=== PATIENT | female | born 1985 | race Caucasian/White ===

== ENCOUNTER 2016-03-31 15:19 | Emergency (ER) | payer MEDICAID ==
[2016-03-31 15:34] VITALS: TEMP 98.5; BMI 22.4
[2016-03-31 15:55] LABS: AUTOMATED BASOPHIL 1.5 % (0-2); AUTOMATED LYMPH 43.7 % (17-44); AUTOMATED MONOCYTE 4.8 % (3-10); MPV 8.9 fL (7.4-10.4)
[2016-03-31 15:56] LABS: BLOOD UREA NITROGEN 8 MG/DL (7-17); CALCIUM 8.8 MG/DL (8.4-10.2); CALCULATED OSMOLALITY 266 MOs/Kg (270-290); CHLORIDE 103 mEq/L (98-107); GLUCOSE 89 MG/DL (70-99); SODIUM LEVEL 140 mEq/L (137-146); TOTAL PROTEIN 7.6 G/DL (6.3-8.2)
[2016-03-31] MEDS ORDERED: MORPHINE 4 MG/ML INJECTION IV ONE ×2 (17:04→18:43)
[2016-03-31] MEDS ORDERED: ONDANSETRON HCL 4 MG/2 ML VIAL IV ONE (17:04)
[2016-03-31] MEDS ORDERED: NS 1,000 ML IV ONE (17:04)
[2016-03-31] MEDS ORDERED: PANTOPRAZOLE 40 MG VIAL IV ONE (17:05)
--- NOTE | 2016-03-31 17:26 | EDPRACDOC ---
- General Information Chief Complaint: Abdominal Pain Stated Complaint: UPPER ABD PAIN WITH PAIN IN BACK VOMITIN Time Seen by Provider: 03/31/16 16:59 Information Source: Patient Mode Of Arrival: Car Home Medications: Home Medications Famotidine [Pepcid] 20 mg PO DAILY #30 tablet 03/31/16 Ferrous Sulfate 324 mg PO DAILY #30 tab 03/31/16 Hydrocodone/Acetaminophen [Lortab 5-325 mg Tablet] 1 each PO Q4H PRN #15 tablet 03/31/16 Allergies/Adverse Reactions: Allergies Allergy/AdvReac Type Severity Reaction Status Date / Time No Known Allergies Allergy Verified 01/28/16 12:13 - History of Present Illness Onset: last night HPI: PT HAS HAD UPPER ABD PAIN SINCE LAST NIGHT. PT SAID IT STARTED AFTER EATING SPAGHETTI. THE PT SAID IT HURTS EVERY TIME SHE EATS. THE PT SAID THAT SHE HAS HAD THIS IN THE PAST, BUT NO EVAL. PT SAID THAT SHE HAS A HX OF ANEMIA AND SEES DR. RUCKER FOR THIS. SHE WAS SUPPOSED TO F/U WITH BEEF SPECIALIST, BUT HAS NOT DONE SO YET DESPITE REQUESTS TO DO SO BY DR. RUCKER. PT SAID HER PCP HAS NOT GIVEN HER A REFERRAL. PT SAID HER PERIODS HAVE NOT BEEN BAD. GB US 2015 NL. Pain Location: Reports: Epigastric Pain Context: Reports: Spontaneous, After Eating Pain Severity: Mild Pain Quality: Reports: Burning Pain Radiation: Reports: No Radiation Last Menstrual Period: 3 weeks : No Blood Type: Unknown Adult Abdominal History: Reports: Abdominal Surgery Female Abdominal History: Reports: Abdominal Surgery Modifying Factors: improves with: Food Oral Intake: Decreased Urinary Output: Normal ED Past Medical History - Patient Medical History Neurological History: Reports: Seizures Psychological History: Reports: Depression Surgical History: Reports: Appendectomy, Tonsillectomy/Adnoidectomy, Other (CSX3 ). Denies: Hysterectomy - Social Medical History Smoking Status: Never smoker ETOH: None Substance Abuse: None Lives In: Home EDM Review of Systems - Review of Systems ROS Negative Except as Marked: Yes All systems reviewed and were negative except as marked Gastrointestinal: Pain - Physical Exam Constitutional: Alert (Awake), No apparent distress Oriented to: Time, Person, Place Last recorded Vital Signs: Last Vital Signs Temp 98.5 F 03/31/16 15:31 Pulse 62 03/31/16 19:44 Resp 18 03/31/16 19:44 BP 102/51 L 03/31/16 19:44 Pulse Ox 98 03/31/16 19:44 Oxygen Pulse Oxygen Saturation 98 O2 Device Room Air Oxygen Flow Rate Fraction of Inspired Oxygen ( FIO2) - HEENT Head: Normal ( normocephalic) Eye Exam: Normal (PERRL, EOMI, Sclera white) Oropharynx: Normal (Pharynx:Moist without exudate,Gums-no swelling) ENT EAC: Normal TMJ: Normal Nose: No Symptoms Reported (septum midline) Neck: Normal (FROM, trachea at midline) - Respiratory/Cardiovascular Respiratory: Normal - CTA (BBS clear to auscultation without adventitious sounds ) Cardiovascular: Normal (RRR without murmur, gallop or rub) - GI Auscultation: Normal (NABS) Palpation: Normal (Soft,No rebound or guarding, non distended) Tenderness: Mild, Epigastric Mcgovern's Sign: Negative - Musculoskeletal Back: Normal (Non-Tender) Extremities: Normal (Normal tone, Pulses 2+ No cyanosis or edema, FROM) - Integumentary Skin: Normal, Warm, Dry Lymphatics: Normal (no adenopathy) - Neurologic Memory Impaired: Normal Motor Function: Normal (Normal tone, Pulses 2+ No cyanosis or edema, FROM) Cranial Nerve: Normal (CN II-X11 intact sensation, strength 5/5) Cerebellar: Normal Mood Description: Normal Thought: Coherent Perception: Normal - Results 03/31/16 15:40 03/31/16 15:40 WBC 6.5 xk/uL (3.8-10.8) 03/31/16 15:40 RBC 4.68 xM/uL (4.20-5.40) 03/31/16 15:40 Hgb 8.4 g/dL (12.0-16.0) L 03/31/16 15:40 Hct 29.2 % (36-47) L 03/31/16 15:40 MCV 62 fL (81-99) L 03/31/16 15:40 MCH 18.0 pg (27-32) L 03/31/16 15:40 MCHC 28.8 g/dl (33-36) L 03/31/16 15:40 RDW 19.3 % (11.5-14.5) H 03/31/16 15:40 Plt Count 323 xk/uL (130-400) 03/31/16 15:40 MPV 8.9 fL (7.4-10.4) 03/31/16 15:40 Sodium 140 mEq/L (137-146) 03/31/16 15:40 Potassium 4.1 mEq/L (3.5-5.1) 03/31/16 15:40 Chloride 103 mEq/L (98-107) 03/31/16 15:40 Carbon Dioxide 27 mMOL/L (22-33) 03/31/16 15:40 Anion Gap 14 mEq/L (8-16) 03/31/16 15:40 BUN 8 MG/DL (7-17) 03/31/16 15:40 Creatinine 0.70 MG/DL (0.52-1.04) 03/31/16 15:40 Estimated GFR (MDRD) > 60 mL/min (>=60) 03/31/16 15:40 Glucose 89 MG/DL (70-99) 03/31/16 15:40 Calculated Osmolality 266 MOs/Kg (270-290) L 03/31/16 15:40 Calcium 8.8 MG/DL (8.4-10.2) 03/31/16 15:40 Total Bilirubin 0.4 MG/DL (0.2-1.3) 03/31/16 15:40 AST 24 IU/L (14-36) 03/31/16 15:40 ALT 29 IU/L (9-52) 03/31/16 15:40 Alkaline Phosphatase 45 IU/L (38-126) 03/31/16 15:40 Total Protein 7.6 G/DL (6.3-8.2) 03/31/16 15:40 Albumin 4.4 G/DL (3.5-5.0) 03/31/16 15:40 Lipase 58 U/L (23-300) 03/31/16 15:40 Urine Color Yellow 03/31/16 18:42 Urine Clarity Clear 03/31/16 18:42 Urine pH 6.0 (5.0-8.0) 03/31/16 18:42 Ur Specific [place] 1.020 (1.003-1.035) 03/31/16 18:42 Urine Protein Neg (NEG/TRACE) 03/31/16 18:42 Urine Glucose (UA) Neg (NEGATIVE) 03/31/16 18:42 Urine Ketones Neg (NEGATIVE) 03/31/16 18:42 Urine Occult Blood Neg (NEG/TRACE) 03/31/16 18:42 Urine Nitrite Neg (NEGATIVE) 03/31/16 18:42 Urine Bilirubin Neg (NEGATIVE) 03/31/16 18:42 Urine Urobilinogen <2.0 MG/DL (0-1) 03/31/16 18:42 Ur Leukocyte Esterase Neg (NEGATIVE) 03/31/16 18:42 Urine RBC 0-2 (0-5) 03/31/16 18:42 Urine WBC 0-2 (0-5) 03/31/16 18:42 Ur Epithelial Cells Occ 03/31/16 18:42 Urine Bacteria Few (NEG/FEW) 03/31/16 18:42 Urine Mucus Occ (NEG/OCC) 03/31/16 18:42 Urine Test Neg (NEGATIVE) 03/31/16 18:42 Lab Results 03/31/16 03/31/16 03/31/16 18:42 18:42 15:40 WBC 6.5 RBC 4.68 Hgb 8.4 L Hct 29.2 L MCV 62 L MCH 18.0 L MCHC 28.8 L RDW 19.3 H Plt Count 323 MPV 8.9 Sodium Potassium Chloride Carbon Dioxide Anion Gap BUN Creatinine Estimated GFR (MDRD) Glucose Calculated Osmolality Calcium Total Bilirubin AST ALT Alkaline Phosphatase Total Protein Albumin Lipase Urine Color Yellow Urine Clarity Clear Urine pH 6.0 Ur Specific [place] 1.020 Urine Protein Neg Urine Glucose (UA) Neg Urine Ketones Neg Urine Occult Blood Neg Urine Nitrite Neg Urine Bilirubin Neg Urine Urobilinogen <2.0 Ur Leukocyte Esterase Neg Urine RBC 0-2 Urine WBC 0-2 Ur Epithelial Cells Occ Urine Bacteria Few Urine Mucus Occ Urine Test Neg 03/31/16 15:40 WBC RBC Hgb Hct MCV MCH MCHC RDW Plt Count MPV Sodium 140 Potassium 4.1 Chloride 103 Carbon Dioxide 27 Anion Gap 14 BUN 8 Creatinine 0.70 Estimated GFR (MDRD) > 60 Glucose 89 Calculated Osmolality 266 L Calcium 8.8 Total Bilirubin 0.4 AST 24 ALT 29 Alkaline Phosphatase 45 Total Protein 7.6 Albumin 4.4 Lipase 58 Urine Color Urine Clarity Urine pH Ur Specific [place] Urine Protein Urine Glucose (UA) Urine Ketones Urine Occult Blood Urine Nitrite Urine Bilirubin Urine Urobilinogen Ur Leukocyte Esterase Urine RBC Urine WBC Ur Epithelial Cells Urine Bacteria Urine Mucus Urine Test - Diagnostic Imaging Abdomen Image interpreted by: Radiologist 03/31/16 19:51 . No acute abdominal or pelvic pathology. Decision Time to Discharge: 19:52 - Departure Yes I personally saw and evaluated the patient. Disposition: Home Condition: Fair Final Diagnosis: Abdominal pain, Chronic anemia Instructions: Acute Abdominal Pain (ED) Education/Counseling Given To: Patient Education/Counseling Given Regarding: Diagnosis, Treatment, Follow Up Referrals: Shan Washington MD [Primary Care Provider] - One Week Cruz Monet MD [Staff Provider No Admit] - One Week Prescriptions: Famotidine [Pepcid] 20 mg PO DAILY #30 tablet Ferrous Sulfate 324 mg PO DAILY #30 tab Hydrocodone/Acetaminophen [Lortab 5-325 mg Tablet] 1 each PO Q4H PRN #15 tablet PRN Reason: Pain
[2016-03-31 18:56] LABS: LEUKOCYTES/URINE NEG (NEGATIVE); NITRITE/URINE NEG (NEGATIVE); RBC/URINE 0-2 (0-5); URINE OCCULT BLOOD NEG (NEG/TRACE); WBC/URINE 0-2 (0-5)
--- NOTE | 2016-03-31 19:38 | DIRPT ---
CLINICAL DATA: Pelvic pain radiating to the right flank. EXAM: CT ABDOMEN AND PELVIS WITHOUT CONTRAST TECHNIQUE: Multidetector CT imaging of the abdomen and pelvis was performed following the standard protocol without IV contrast. COMPARISON: None. FINDINGS: Lower chest: Clear lung bases. Normal heart size. Hepatobiliary: Normal liver. Normal gallbladder. Pancreas: Normal. Spleen: Normal. Adrenals/Urinary Tract: Normal adrenal glands. Normal kidneys. No urolithiasis or obstructive uropathy. Normal bladder. Stomach/Bowel: No bowel wall thickening or dilatation. No pneumatosis, pneumoperitoneum or portal venous gas. No abdominal or pelvic free fluid. Vascular/Lymphatic: Normal caliber abdominal aorta. No abdominal or pelvic lymphadenopathy. Reproductive: No adnexal mass. Normal uterus. Other: No fluid collection or hematoma. Musculoskeletal: No acute osseous abnormality. No lytic or sclerotic osseous lesion. IMPRESSION: 1. No acute abdominal or pelvic pathology. Electronically Signed By: Isabel Mohamud On: 03/31/2016 19:35
[2016-03-31 20:06] VITALS: BP 103/57; PULSE 56
== END 2016-03-31 20:05 | disposition home or self-care (01) ==
LOC: ED 15:19
DX: R10.10 Upper abdominal pain, unspecified (principal); D64.9 Anemia, unspecified
CPT/HCPCS: 36415; 74176; 80053; 81001; 81025; 83690; 85025; 96361; 96374; 96375; 96376; 99284; J2270; J2405; J3490; S0164